=== PATIENT | male | born 1970 ===

== ENCOUNTER 2018-10-31 15:15 | Outpatient (CLI) | payer OTHER ==
--- NOTE | 2018-10-31 17:04 | MRI ---
MR OF THE RIGHT RING FINGER WITHOUT IV CONTRAST: 10/31/18 INDICATION: History of fourth digit injury with diminished flexion and persistent pain suspicious for a possible lachelle injury or rupture of the flexor tendon sheath. The patient has had sternoid injections within the right finger without relieve. FINDINGS: There is mild tenosynovitis present involving the flexor tendon sheath of the right ring finger. Ther e is poor visualization involving the mid to distal aspect of the A2 lachelle suspicious for a partial width, full thickness tear of the mid to distal A2 lachelle. The annular ligaments and cruciate ligamen ts of the remaining aspects of the flexor tendon course appear intact. The flexor tendons are intact. No acute fracture is evident. The volar plates appear intact. Collateral ligaments of the interphala ngeal joints of the ring finger appear intact. IMPRESSION: Mild tenosynovitis of the right ring finger with suspicion for A2 lachelle ligamentous injury. POS: [facility]
== END 2018-10-31 15:16 | disposition home or self-care (01) ==
LOC: BICMRI 15:15
PROVIDERS: ATTEND Orthopaedic Surgery Hand Surgery
DX: S66.114A Strain of flexor muscle, fascia and tendon of right ring finger at wrist and hand level, initial encounter (principal); M65.841 Other synovitis and tenosynovitis, right hand